=== PATIENT | female | born 1990 | race Caucasian/White ===

== ENCOUNTER 2016-08-31 18:57 | Emergency (ER) | payer OTHER ==
[~2016-08-31] VITALS: Ht 154.9 cm; Wt 96.0 kg
[2016-08-31 19:46] VITALS: BP 119/79
== END 2016-08-31 23:00 | disposition left against medical advice (07) ==
LOC: ER 18:57
DX: M25.572 Pain in left ankle and joints of left foot (principal); Z53.21 Procedure and treatment not carried out due to patient leaving prior to being seen by health care provider